=== PATIENT | female | born 2000 | race Caucasian/White ===

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

== ENCOUNTER 2021-07-10 09:40 | Emergency (ER) | payer OTHER ==
[~2021-07-10] VITALS: Ht 162.6 cm; Wt 52.3 kg
[~2021-07-10 09:40] MED LIST changes: +ZOFRAN ODT4 MG PO
[2021-07-10 10:07] VITALS: BP 118/66; TEMP 97.9
[2021-07-10] MEDS ORDERED: ZOFRAN ODT4 MG PO (11:13)
[2021-07-10 11:25] VITALS: PULSE 73
== END 2021-07-10 11:25 | disposition home or self-care (01) ==
LOC: COL.ER 09:40
DX: U07.1 COVID-19 (principal)

== ENCOUNTER 2021-07-13 10:12 | Emergency (ER) | payer OTHER ==
[~2021-07-13] VITALS: Ht 162.6 cm; Wt 52.3 kg
[2021-07-13 10:33] VITALS: TEMP 98.3
[2021-07-13] MEDS ORDERED: PHENERGAN 25 TA25 MG PO (12:44)
[2021-07-13 12:56] VITALS: BP 106/69; PULSE 72
== END 2021-07-13 12:56 | disposition home or self-care (01) ==
LOC: COL.ER 10:12
DX: U07.1 COVID-19 (principal); Z73.0 Burn-out
CPT/HCPCS: J2550; J7030

== ENCOUNTER 2021-12-01 14:40 | Emergency (ER) | payer OTHER ==
[~2021-12-01] VITALS: Ht 162.6 cm; Wt 53.2 kg
[~2021-12-01 14:40] MED LIST changes: +PHENERGAN 25 TA25 MG PO
[2021-12-01 14:51] VITALS: BP 116/70; TEMP 97.8
[2021-12-01] MEDS ORDERED: PHENERGAN 25 TA25 MG PO (16:05)
[2021-12-01 16:10] VITALS: PULSE 83
== END 2021-12-01 16:12 | disposition home or self-care (01) ==
LOC: COL.ER 14:40
DX: O21.0 Mild hyperemesis gravidarum (principal); Z3A.12 12 weeks gestation of pregnancy
CPT/HCPCS: J2550; J7120

== ENCOUNTER 2022-01-30 23:45 | Emergency (ER) | payer OTHER ==
[~2022-01-30] VITALS: Ht 162.6 cm; Wt 56.8 kg
[2022-01-30 23:58] VITALS: TEMP 97.4
[2022-01-31 00:42] LABS: BASO % 0.5 % (0.0-2.0); EOS # 0.2 K/mm3 (0.0-0.7); EOS % 2.7 % (0.0-4.0); GRAN # 3.4 K/mm3 (1.4-6.5); GRAN % 51.2 % (42.2-75.2); LYMPH # 2.5 K/mm3 (1.2-3.4); LYMPH % 37.6 % (20.0-51.0); MEAN CELL VOLUME 86 fl (80.0-95.0); MEAN CORPUSCULAR HGB CONC 35 g/dl (33.0-37.0); MEAN PLATELET VOLUME 9.8 fl (7.4-10.4); MONO # 0.5 K/mm3 (0.1-0.6); MONO % 7.8 % (1.7-9.3); PLATELET COUNT 181 K/mm3 (130-400); RED BLOOD COUNT 3.25 M/mm3 (4.10-5.30); REDCELL DISTRIBUTION WIDTH-CV 12.9 % (11.5-14.5)
[2022-01-31 00:43] LABS: HEMATOCRIT 27.9 % (35.0-45.0); HEMOGLOBIN 9.8 g/dl (12.0-15.0); MEAN CORPUSCULAR HEMOGLOBIN 30 pg (26-32)
[2022-01-31 00:44] LABS: COLLECTION METHOD CLEAN CATCH
[2022-01-31 01:00] LABS: MUCOUS Present (NOT PRESENT); PH 6 (5-8); SQUAMOUS EPITHELIAL 0-2 /hpf (0-10); URINE APPEARANCE Hazy (CLEAR/HAZY); URINE BACTERIA None Seen /hpf (NONE SEEN); URINE BLOOD 3+ (NEGATIVE); URINE CALCIUM OXALATE CRYSTAL Present (NOT PRESENT); URINE COLOR Yellow (YELLOW); URINE GLUCOSE Negative (NEGATIVE); URINE KETONE Negative (NEGATIVE); URINE NITRATE Negative (NEGATIVE); URINE PROTEIN(semi-quant) Negative (NEGATIVE); URINE RBC >50 /hpf (0-2); URINE UROBILINOGEN Negative (NEGATIVE)
[2022-01-31 01:08] LABS: ALBUMIN 4.2 gm/dL (3.5-5.0); BILIRUBIN,TOTAL 0.2 mg/dL (0.2-1.2); CALCIUM 9.6 mg/dL (8.4-10.2); CREATININE, serum 0.81 mg/dL (0.57-1.11); POTASSIUM 4.1 mmol/L (3.5-4.5); TOTAL PROTEIN 7.2 gm/dL (6.2-8.1)
[2022-01-31 02:54] VITALS: BP 109/60; PULSE 77
== END 2022-01-31 02:54 | disposition home or self-care (01) ==
LOC: COL.ER 23:45
PROVIDERS: Nurse Practitioner
DX: N93.9 Abnormal uterine and vaginal bleeding, unspecified (principal)
CPT/HCPCS: J1885; J7030